=== PATIENT | female | born 1940 | race Hispanic/Latino ===

== ENCOUNTER → 2017-07-17 | Outpatient (CLI) | payer OTHER, MEDICARE | END | disposition home or self-care (01) | LOC: RAH 15:11 | PROVIDERS: ATTEND Family Medicine | DX: Z12.31 Encounter for screening mammogram for malignant neoplasm of breast (principal) | CPT/HCPCS: 77067 ==

== ENCOUNTER → 2018-09-15 | Outpatient (CLI) | payer OTHER, MEDICARE | END | disposition home or self-care (01) | LOC: RAH 13:04 | PROVIDERS: ATTEND Family Medicine | DX: Z12.31 Encounter for screening mammogram for malignant neoplasm of breast (principal) | CPT/HCPCS: 77067 ==

== ENCOUNTER → 2021-04-12 | Outpatient (CLI) | payer OTHER, MEDICARE | END | disposition home or self-care (01) | LOC: RAH 09:05 | PROVIDERS: ATTEND Family Medicine | DX: Z12.31 Encounter for screening mammogram for malignant neoplasm of breast (principal); J44.9 Chronic obstructive pulmonary disease, unspecified; K43.9 Ventral hernia without obstruction or gangrene; I70.0 Atherosclerosis of aorta; I10 Essential (primary) hypertension | CPT/HCPCS: 71046; 77067 ==

== ENCOUNTER → 2022-04-14 | Outpatient (CLI) | payer OTHER, MEDICARE | END | disposition home or self-care (01) | LOC: RAH 11:00 | PROVIDERS: ATTEND Family Medicine | DX: Z12.31 Encounter for screening mammogram for malignant neoplasm of breast (principal) | CPT/HCPCS: 77067 ==

== ENCOUNTER 2022-09-15 09:19 | Observation (INO) | payer OTHER, MEDICARE ==
[~2022-09-15] VITALS: Ht 152.4 cm; Wt 59.1 kg
[~2022-09-15 09:19] MED LIST: AMLO-258 PO; ATOR40TA69 PO; ESCI-8 PO; LISI1TAB51 PO; METF-444 PO; PANT40TA54 PO
[2022-09-15] MEDS ORDERED: NITROGLYCERIN 1GM OINT 1 INCH/1GM TD ONE (10:00)
[2022-09-15] MEDS ORDERED: ASPIRIN 325MG TAB PO ONE (10:00)
[2022-09-15 10:21] LABS: BASOPHILS % (AUTO) 0.7 % (0.0-5.0); EOSINOPHILS % (AUTO) 2.8 % (0.0-8.0); HEMATOCRIT 35.4 % (36-48); LYMPHOCYTES % (AUTO) 27.8 % (21.0-51.0); MEAN CORPUSCULAR HGB CONC 31.6 g/dL (32.0-36.0); MEAN CORPUSCULAR VOLUME 82.3 fL (79-99); NEUTROPHILS % (AUTO) 62.2 % (40.0-77.0); PLATELET COUNT (AUTO) 358 K/uL (130-400); RED CELL DISTRIBUTION WIDTH 14.9 % (11.0-15.5); WHITE BLOOD COUNT (AUTO) 8.7 K/uL (4.8-10.8)
[2022-09-15 10:34] LABS: INR 0.98 (0.85-1.15); PROTHROMBIN TIME 11.4 SEC (9.6-11.6)
[2022-09-15 10:35] LABS: PARTIAL THROMBOPLASTIN TIME 27.4 SEC (26.3-35.5)
[2022-09-15 10:38] LABS: CREATININE 1.3 mg/dL (0.5-1.5); POTASSIUM 4.1 mmol/L (3.5-5.1)
[2022-09-15 10:50] LABS: ALBUMIN 3.2 g/dL (3.5-5.0); MAGNESIUM 1.5 mg/dL (1.80-2.40); THYROID STIMULATING HORMONE 1.51 uIU/mL (0.36-3.74); TOTAL PROTEIN, SERUM 6.9 g/dL (6.0-8.3)
[2022-09-15] MEDS ORDERED: HYDRALAZINE 20MG/ML VIAL IV ONE (11:30)
[2022-09-15] MEDS ORDERED: SULF1TAB42 PO (11:37)
[2022-09-15] MEDS ORDERED: TRAMADOL HCL 50 MG TABLET PO PRN (13:30)
[2022-09-15] MEDS ORDERED: LABETALOL 20MG SYG IV PRN (13:30)
[2022-09-15] MEDS ORDERED: ACETAMINOPHEN 325 MG TAB PO PRN (13:30)
[2022-09-15] MEDS ORDERED: HYDRALAZINE 20MG/ML VIAL IV PRN (13:30)
[2022-09-15] MEDS ORDERED: ONDANSETRON 4MG INJ IVP PRN (13:30)
[2022-09-15] MEDS ORDERED: LACTULOSE 20 GM/30 ML UDCUP PO PRN (13:30)
[2022-09-15] MEDS ORDERED: CLONIDINE HCL 0.1 MG TABLET PO PRN (13:30)
[2022-09-15] MEDS: SIMVASTATIN 20 MG TABLET PO SCH (17:42)
[2022-09-16 02:45] LABS: APPEARANCE,URINE CLEAR (CLEAR); BILIRUBIN,URINE NEGATIVE (NEGATIVE); COLOR,URINE LIGHT-YELLOW (YELLOW); GLUCOSE, URINE (UA) NEGATIVE (NEGATIVE); KETONES,URINE NEGATIVE (NEGATIVE); LEUKOCYTE ESTERASE ,URINE 75 Leu/uL (NEGATIVE); NITRATE,URINE NEGATIVE (NEGATIVE); OCCULT BLOOD,URINE NEGATIVE (NEGATIVE); PROTEIN,URINE 10 mg/dL (NEGATIVE); UROBILINOGEN,URINE 0.2 mg/dL (0.2-1.0)
[2022-09-16 03:16] LABS: BACTERIA,URINE RARE /HPF (None Seen); RBC,URINE 0-1 /HPF (0-1); SQUAMOUS EPITHELIAL CELL,UR FEW /HPF (0-2)
[2022-09-16 04:43] VITALS: BP 147/73; PULSE 99; RESP 18
[2022-09-16 05:50] LABS: HEMATOCRIT 32.1 % (36-48); MEAN CORPUSCULAR HGB CONC 31.8 g/dL (32.0-36.0); MEAN CORPUSCULAR VOLUME 81.7 fL (79-99); RED BLOOD CELL COUNT(AUTO) 3.93 MIL/uL (4.00-5.50); RED CELL DISTRIBUTION WIDTH 15.1 % (11.0-15.5); WHITE BLOOD COUNT (AUTO) 8.3 K/uL (4.8-10.8)
[2022-09-16 06:20] LABS: CREATININE 1.3 mg/dL (0.5-1.5); MAGNESIUM 1.6 mg/dL (1.80-2.40); POTASSIUM 3.8 mmol/L (3.5-5.1); THYROID STIMULATING HORMONE 1.77 uIU/mL (0.36-3.74)
[2022-09-16 08:00] VITALS: BP 168/70; PULSE 64; RESP 16; O2SAT 97
[2022-09-16] MEDS ORDERED: NON-FORMULARY MEDICATION 1 EACH (Escitalopram Oxalate 10 MG) PO SCH (09:00)
[2022-09-16] MEDS ORDERED: AMLODIPINE 5 MG TAB PO SCH ×2 (09:00→21:00)
[2022-09-16] MEDS ORDERED: NON-FORMULARY MEDICATION 1 EACH (Amlodipine Besylate 10 MG) PO SCH (09:00)
[2022-09-16] MEDS: PANTOPRAZOLE 40 MG TAB DR PO SCH (09:00)
[2022-09-16] MEDS ORDERED: NON-FORMULARY MEDICATION 1 EACH (Lisinopril/Hydrochlorothiazide (Lisinopril-Hctz 20-12.5 m PO SCH (09:00)
[2022-09-16] MEDS: LISINOPRIL 20 MG TABLET PO SCH (09:55)
[2022-09-16] MEDS: HYDROCHLOROTHIAZIDE 25 MG TABLET PO SCH (09:57)
[2022-09-16] MEDS: CITALOPRAM 20 MG TABLET PO SCH (09:58)
[2022-09-16] MEDS: ASPIRIN 81MG CHEW TAB PO SCH (09:59)
[2022-09-16 11:51] VITALS: BP 160/65; PULSE 74; RESP 16
[2022-09-16] MEDS: SIMVASTATIN 20 MG TABLET PO SCH (14:04)
[2022-09-16 16:00] VITALS: BP 160/71; PULSE 78; RESP 16
[2022-09-16 19:00] VITALS: BP 166/82; PULSE 84; RESP 18
[2022-09-16 23:46] VITALS: BP 141/64; PULSE 80; RESP 18
[2022-09-17 04:00] VITALS: BP 140/68; PULSE 78; RESP 18
[2022-09-17 05:34] LABS: HEMATOCRIT 32.7 % (36-48); MEAN CORPUSCULAR HEMOGLOBIN 26.1 pg (27.0-33.0); MEAN CORPUSCULAR HGB CONC 31.5 g/dL (32.0-36.0); MEAN CORPUSCULAR VOLUME 82.8 fL (79-99); RED BLOOD CELL COUNT(AUTO) 3.95 MIL/uL (4.00-5.50); RED CELL DISTRIBUTION WIDTH 14.9 % (11.0-15.5); WHITE BLOOD COUNT (AUTO) 8.6 K/uL (4.8-10.8)
[2022-09-17 05:52] LABS: CREATININE 1.3 mg/dL (0.5-1.5); MAGNESIUM 1.5 mg/dL (1.80-2.40)
[2022-09-17] MEDS ORDERED: MAGNESIUM 2GM PREMIX 50ML 50 ML IV PRN (06:00)
[2022-09-17 07:30] VITALS: O2SAT 92
[2022-09-17 08:00] VITALS: BP 154/75; PULSE 78; RESP 18
[2022-09-17] MEDS: ASPIRIN 81MG CHEW TAB PO SCH (09:53)
[2022-09-17] MEDS: PANTOPRAZOLE 40 MG TAB DR PO SCH (09:53)
[2022-09-17] MEDS: HYDROCHLOROTHIAZIDE 25 MG TABLET PO SCH (09:53)
[2022-09-17] MEDS: CITALOPRAM 20 MG TABLET PO SCH (09:54)
[2022-09-17] MEDS: LISINOPRIL 20 MG TABLET PO SCH (09:54)
[2022-09-17 12:00] VITALS: BP 143/71; PULSE 79; RESP 18
== END 2022-09-17 15:45 | disposition home or self-care (01) ==
LOC: EDH 09:19 → EDHIP 13:20 → 4DH 09-16 04:43
PROVIDERS: ADMIT Internal Medicine; ATTEND Internal Medicine
DX: I16.0 Hypertensive urgency (principal); I16.9 Hypertensive crisis, unspecified; I95.2 Hypotension due to drugs; I65.23 Occlusion and stenosis of bilateral carotid arteries; K44.9 Diaphragmatic hernia without obstruction or gangrene; E11.43 Type 2 diabetes mellitus with diabetic autonomic (poly)neuropathy; K31.84 Gastroparesis; E78.00 Pure hypercholesterolemia, unspecified; K21.9 Gastro-esophageal reflux disease without esophagitis; F41.9 Anxiety disorder, unspecified; T46.5X5A Adverse effect of other antihypertensive drugs, initial encounter; Y92.89 Other specified places as the place of occurrence of the external cause; Z79.899 Other long term (current) drug therapy
CPT/HCPCS: 96374; 99284; 84443 ×2; 82550 ×4; 83735 ×3; 83874 ×3; 84484 ×4; 82330; 80053; 85025; 85610; 85730; 36415 ×3; 71045; 84100; 80048 ×2; 83880; 85027 ×2; 86850; 86900; 86901; 87088; 81001; 93306; 70551; 70544; 70547; G0378 ×49; J0360

== ENCOUNTER → 2023-10-09 | Outpatient (CLI) | payer OTHER, MEDICARE | END | disposition home or self-care (01) | LOC: RAH 09:46 | PROVIDERS: ATTEND Family Medicine | DX: Z12.31 Encounter for screening mammogram for malignant neoplasm of breast (principal); R92.30 Dense breasts, unspecified; R92.1 Mammographic calcification found on diagnostic imaging of breast | CPT/HCPCS: 77067 ==